=== PATIENT | female | born 1990 | race Caucasian/White ===

== ENCOUNTER 2019-03-08 07:16 | Emergency (ER) | payer MEDICAID ==
[~2019-03-08] VITALS: Ht 162.6 cm; Wt 89.5 kg
[2019-03-08] MEDS ORDERED: ketorolac tromethamine 15mg/ml inj. IV ONE (07:45)
[2019-03-08] MEDS ORDERED: ondansetron/PF 4mg/2ml inj IV ONE (07:45)
[2019-03-08] MEDS ORDERED: normal saline 1000ML IV soln IVB ONE (07:45)
[2019-03-08 07:51] LABS: BASOPHILS % (AUTO) 0.6 % (0-1); EOSINOPHILS # (AUTO) 0.1 X10'3 (0-0.9); EOSINOPHILS % (AUTO) 1.7 % (0-6); HEMATOCRIT 40.9 % (35.0-45.0); HEMOGLOBIN 13.6 g/dl (12.0-16.0); LYMPHOCYTES # (AUTO) 1.3 X10'3 (1.1-4.8); LYMPHOCYTES % (AUTO) 18.8 % (21-51); MEAN CORPUSCULAR HEMOGLOBIN 28.7 PG (27.0-31.0); MEAN CORPUSCULAR HGB CONC 33.3 g/dL (33.0-36.5); MEAN CORPUSCULAR VOLUME 86.1 FL (78-98); MEAN PLATELET VOLUME 8.7 FL (7.4-10.4); MONOCYTES # (AUTO) 0.3 X10'3 (0-0.9); MONOCYTES % (AUTO) 4.2 % (2-12); NEUTROPHILS # (AUTO) 5.1 X10'3 (1.8-7.7); NEUTROPHILS % (AUTO) 74.7 % (42-75); PLATELET COUNT 264 X10'3 (140-440); RED BLOOD COUNT 4.75 X10'6 (4.20-5.60); RED CELL DISTRIBUTION WIDTH 13.6 % (11.5-14.5); WHITE BLOOD COUNT 6.9 X10'3 (4.5-11.0)
[2019-03-08 07:53] LABS: COLOR,URINE YELLOW (Yellow); GLUCOSE, URINE NEGATIVE (Neg); KETONES,URINE NEGATIVE (Neg); LEUKOCYTE ESTERASE ,URINE TRACE (Neg); NITRITES, URINE NEGATIVE (Neg); OCCULT BLOOD,URINE LARGE (Neg); PROTEIN,URINE NEGATIVE (Neg); UROBILINOGEN,URINE 0.2 E.U/dL (0.2-1.0)
[2019-03-08 07:54] LABS: CLARITY,URINE SLIGHTLY CLOUDY (Clear); UA COLLECTION TYPE VOIDED
[2019-03-08 08:04] LABS: ALANINE AMINOTRANSFERASE 28 U/L (12-78); ALBUMIN 3.7 G/DL (3.4-5.0); ALKALINE PHOSPHATASE 70 IU/L (46-116); ANION GAP 10 (8-16); ASPARTATE AMINO TRANSFERASE 17 U/L (10-37); BILIRUBIN,TOTAL 0.4 MG/DL (0.1-1.0); BLOOD UREA NITROGEN 11 MG/DL (7-18); BUN/CREATININE RATIO 15.7 (6.6-38.0); CALCIUM 8.2 MG/DL (8.5-10.1); CHLORIDE 105 MMOL/L (99-107); GLUCOSE 106 MG/DL (70-104); LIPASE 152 U/L (73-393); POTASSIUM 3.8 MMOL/L (3.5-5.1); SODIUM 140 MMOL/L (135-145); TOTAL CARBON DIOXIDE 25.3 MMOL/L (24-32); TOTAL PROTEIN 7.4 G/DL (6.4-8.2); eGFR > 90 ML/MIN
--- NOTE | 2019-03-08 08:05 | NUR ---
US AT BEDSIDE PER ORDERS NOW
[2019-03-08 08:06] LABS: BACTERIA,URINE 3+ /HPF (Neg); SQUAMOUS EPITHELIAL CELL,UR MODERATE /LPF (FEW)
[2019-03-08 08:07] LABS: MUCUS STRANDS FEW /LPF (Neg); WBC,URINE 30-50 /HPF (0-4)
[2019-03-08] MEDS ORDERED: CEPH-572 PO (08:14)
[2019-03-08 08:36] LABS: URINE HCG NEGATIVE (NEG)
[2019-03-08 08:40] VITALS: BP 99/64
== END 2019-03-08 08:46 | disposition home or self-care, planned readmission (81) ==
LOC: ER 07:17
DX: K29.00 Acute gastritis without bleeding (principal); K80.20 Calculus of gallbladder without cholecystitis without obstruction; N39.0 Urinary tract infection, site not specified; Z88.1 Allergy status to other antibiotic agents; Z88.8 Allergy status to other drugs, medicaments and biological substances
CPT/HCPCS: 36415; 76700; 80053; 81001; 81025; 83690; 85025; 87088; 96361; 96374; 96375; 99284; J1885; J2405; J7030

== ENCOUNTER 2019-07-01 18:59 | Emergency (ER) | payer MEDICAID ==
[~2019-07-01] VITALS: Ht 162.6 cm; Wt 88.2 kg
[2019-07-01 19:10] VITALS: BP 113/82
[2019-07-01 19:41] LABS: BASOPHILS # (AUTO) 0.1 X10'3 (0-0.2); EOSINOPHILS # (AUTO) 0.2 X10'3 (0-0.9); EOSINOPHILS % (AUTO) 2.8 % (0-6); HEMATOCRIT 40.8 % (35.0-45.0); HEMOGLOBIN 13.8 g/dl (12.0-16.0); LYMPHOCYTES # (AUTO) 2.1 X10'3 (1.1-4.8); LYMPHOCYTES % (AUTO) 27.6 % (21-51); MEAN CORPUSCULAR HEMOGLOBIN 28.9 PG (27.0-31.0); MEAN CORPUSCULAR HGB CONC 33.8 g/dL (33.0-36.5); MEAN CORPUSCULAR VOLUME 85.6 FL (78-98); MEAN PLATELET VOLUME 8.6 FL (7.4-10.4); MONOCYTES # (AUTO) 0.4 X10'3 (0-0.9); MONOCYTES % (AUTO) 5.3 % (2-12); NEUTROPHILS # (AUTO) 4.9 X10'3 (1.8-7.7); NEUTROPHILS % (AUTO) 63.3 % (42-75); PLATELET COUNT 316 X10'3 (140-440); RED BLOOD COUNT 4.77 X10'6 (4.20-5.60); WHITE BLOOD COUNT 7.8 X10'3 (4.5-11.0)
[2019-07-01 19:48] LABS: CLARITY,URINE CLEAR (Clear); COLOR,URINE YELLOW (Yellow); GLUCOSE, URINE NEGATIVE (Neg); KETONES,URINE NEGATIVE (Neg); LEUKOCYTE ESTERASE ,URINE NEGATIVE (Neg); NITRITES, URINE NEGATIVE (Neg); OCCULT BLOOD,URINE SMALL (Neg); PROTEIN,URINE NEGATIVE (Neg); UROBILINOGEN,URINE 0.2 E.U/dL (0.2-1.0)
[2019-07-01 19:53] LABS: URINE HCG NEGATIVE (NEG)
[2019-07-01 19:54] LABS: UA COLLECTION TYPE NON-SPECIFIED
[2019-07-01 19:55] LABS: BACTERIA,URINE FEW /HPF (Neg); RBC,URINE NONE SEEN /HPF (0-2); SQUAMOUS EPITHELIAL CELL,UR FEW /LPF (FEW); WBC,URINE 0-4 /HPF (0-4)
[2019-07-01 19:55] LABS: ALANINE AMINOTRANSFERASE 24 U/L (12-78); ALBUMIN 4.1 G/DL (3.4-5.0); ALBUMIN/GLOBULIN RATIO 1.2 (1.1-1.5); ALKALINE PHOSPHATASE 67 IU/L (46-116); AMYLASE 64 U/L (25-115); ANION GAP 9 (8-16); ASPARTATE AMINO TRANSFERASE 12 U/L (10-37); BILIRUBIN,TOTAL 0.2 MG/DL (0.1-1.0); BLOOD UREA NITROGEN 17 MG/DL (7-18); BUN/CREATININE RATIO 22.1 (6.6-38.0); CALCIUM 9.3 MG/DL (8.5-10.1); CHLORIDE 104 MMOL/L (99-107); CREATININE 0.77 MG/DL (0.40-0.90); GLUCOSE 101 MG/DL (70-104); LIPASE 302 U/L (73-393); POTASSIUM 3.7 MMOL/L (3.5-5.1); SODIUM 142 MMOL/L (135-145); TOTAL CARBON DIOXIDE 28.7 MMOL/L (24-32); TOTAL PROTEIN 7.6 G/DL (6.4-8.2); eGFR 89 ML/MIN
== END 2019-07-01 21:00 | disposition home or self-care (01) ==
LOC: ER 19:00
DX: R10.12 Left upper quadrant pain (principal); F17.200 Nicotine dependence, unspecified, uncomplicated; Z88.0 Allergy status to penicillin
CPT/HCPCS: 36415; 80053; 81001; 81025; 82150; 83690; 85025; 99283

== ENCOUNTER 2019-07-12 17:35 | Inpatient (IN) | payer MEDICAID ==
[~2019-07-12] VITALS: Ht 165.1 cm; Wt 90.6 kg
[2019-07-12 18:38] LABS: BASOPHILS % (AUTO) 0.7 % (0-1); EOSINOPHILS # (AUTO) 0.2 X10'3 (0-0.9); EOSINOPHILS % (AUTO) 4.7 % (0-6); HEMATOCRIT 40.6 % (35.0-45.0); HEMOGLOBIN 13.6 g/dl (12.0-16.0); LYMPHOCYTES # (AUTO) 1.3 X10'3 (1.1-4.8); LYMPHOCYTES % (AUTO) 25.1 % (21-51); MEAN CORPUSCULAR HEMOGLOBIN 28.2 PG (27.0-31.0); MEAN CORPUSCULAR HGB CONC 33.4 g/dL (33.0-36.5); MEAN CORPUSCULAR VOLUME 84.6 FL (78-98); MEAN PLATELET VOLUME 8.6 FL (7.4-10.4); MONOCYTES # (AUTO) 0.4 X10'3 (0-0.9); MONOCYTES % (AUTO) 6.9 % (2-12); NEUTROPHILS # (AUTO) 3.2 X10'3 (1.8-7.7); NEUTROPHILS % (AUTO) 62.6 % (42-75); PLATELET COUNT 294 X10'3 (140-440); RED CELL DISTRIBUTION WIDTH 13.9 % (11.5-14.5); WHITE BLOOD COUNT 5.1 X10'3 (4.5-11.0)
[2019-07-12 18:59] LABS: ALBUMIN 3.8 G/DL (3.4-5.0); ALKALINE PHOSPHATASE 199 IU/L (46-116); ANION GAP 6 (8-16); ASPARTATE AMINO TRANSFERASE 437 U/L (10-37); BILIRUBIN,TOTAL 4.2 MG/DL (0.1-1.0); BLOOD UREA NITROGEN 8 MG/DL (7-18); BUN/CREATININE RATIO 10.3 (6.6-38.0); CALCIUM 9.3 MG/DL (8.5-10.1); CHLORIDE 102 MMOL/L (99-107); CREATININE 0.78 MG/DL (0.40-0.90); GLUCOSE 94 MG/DL (70-104); LIPASE 500 U/L (73-393); POTASSIUM 3.5 MMOL/L (3.5-5.1); SODIUM 138 MMOL/L (135-145); TOTAL CARBON DIOXIDE 30.2 MMOL/L (24-32); eGFR 88 ML/MIN
[2019-07-12 19:06] LABS: ALANINE AMINOTRANSFERASE 1227 U/L (12-78); ALBUMIN/GLOBULIN RATIO 1.1 (1.1-1.5); TOTAL PROTEIN 7.4 G/DL (6.4-8.2)
[2019-07-12 20:33] LABS: CLARITY,URINE CLEAR (Clear); COLOR,URINE YELLOW (Yellow); GLUCOSE, URINE NEGATIVE (Neg); KETONES,URINE NEGATIVE (Neg); LEUKOCYTE ESTERASE ,URINE TRACE (Neg); NITRITES, URINE NEGATIVE (Neg); OCCULT BLOOD,URINE NEGATIVE (Neg); PROTEIN,URINE NEGATIVE (Neg); URINE HCG NEGATIVE (NEG)
[2019-07-12 20:39] LABS: UA COLLECTION TYPE CLN CATCH MIDSTREAM
[2019-07-12 20:42] LABS: BACTERIA,URINE NONE SEEN /HPF (Neg); RBC,URINE NONE SEEN /HPF (0-2); SQUAMOUS EPITHELIAL CELL,UR FEW /LPF (FEW); WBC,URINE 0-4 /HPF (0-4)
[2019-07-12] MEDS ORDERED: ondansetron/PF 4mg/2ml inj IV ONE ×2 (21:05→22:30)
[2019-07-12] MEDS ORDERED: normal saline 1000ml 1,000 ML IVB ONE (21:05)
[2019-07-12] MEDS ORDERED: normal saline 1000ML IV soln IVB ONE (21:15)
--- NOTE | 2019-07-12 21:20 | NUR ---
US TECH AT BEDSIDE.
[2019-07-12] MEDS ORDERED: ketorolac trometh. 30mg/ml inj. IV ONE (21:55)
[2019-07-12] MEDS ORDERED: morphine 4 MG/ML inj SYRINge IV PRN (22:30)
[2019-07-12] MEDS ORDERED: LEVO88TA7 PO (22:41)
[2019-07-12] MEDS ORDERED: LISD20CA PO (22:41)
[2019-07-12] MEDS ORDERED: magnesium hydroxide 30ml (MOM) UD suspension PO PRN (23:05)
[2019-07-12] MEDS ORDERED: potassium CL 10mEq/100ml bag 100 ML IV PRN ×2 (23:05)
[2019-07-12] MEDS ORDERED: magnesium 2GM in 50ml NS 50 ML IV PRN (23:05)
[2019-07-12] MEDS ORDERED: morphine 2 MG/ML inj. syringe IV PRN (23:05)
[2019-07-12] MEDS ORDERED: mag hydrox/Alum hydrox/simeth 30ml oral suspension PO PRN (23:05)
[2019-07-12] MEDS ORDERED: magnesium Cl slow-release 64mg tablet PO PRN (23:05)
[2019-07-12] MEDS ORDERED: HYDROcodone/acetaminophen 5mg/325mg tablet PO PRN (23:05)
[2019-07-12] MEDS ORDERED: ondansetron/PF 4mg/2ml inj IV PRN (23:05)
[2019-07-12] MEDS ORDERED: magnesium 4gm in 100ml NS 100 ML IV PRN (23:05)
[2019-07-12] MEDS ORDERED: acetaminophen 325mg tablet PO PRN ×2 (23:05)
[2019-07-12] MEDS ORDERED: potassium Cl 20 mEq SR tablet PO PRN ×2 (23:05)
[2019-07-13 00:30] VITALS: BP 111/51
[2019-07-13] MEDS: normal saline 1000ml 1,000 ML IV SCH ×3 (00:42→22:47)
[2019-07-13 05:24] LABS: BASOPHILS % (AUTO) 0.7 % (0-1); EOSINOPHILS # (AUTO) 0.3 X10'3 (0-0.9); EOSINOPHILS % (AUTO) 6.4 % (0-6); HEMATOCRIT 37.5 % (35.0-45.0); HEMOGLOBIN 12.7 g/dl (12.0-16.0); LYMPHOCYTES # (AUTO) 1.6 X10'3 (1.1-4.8); LYMPHOCYTES % (AUTO) 31.2 % (21-51); MEAN CORPUSCULAR HEMOGLOBIN 29.1 PG (27.0-31.0); MEAN CORPUSCULAR HGB CONC 33.9 g/dL (33.0-36.5); MEAN CORPUSCULAR VOLUME 85.6 FL (78-98); MEAN PLATELET VOLUME 8.9 FL (7.4-10.4); MONOCYTES # (AUTO) 0.4 X10'3 (0-0.9); MONOCYTES % (AUTO) 8.3 % (2-12); NEUTROPHILS # (AUTO) 2.7 X10'3 (1.8-7.7); NEUTROPHILS % (AUTO) 53.4 % (42-75); PLATELET COUNT 236 X10'3 (140-440); RED BLOOD COUNT 4.38 X10'6 (4.20-5.60); RED CELL DISTRIBUTION WIDTH 14.3 % (11.5-14.5); WHITE BLOOD COUNT 5.1 X10'3 (4.5-11.0)
[2019-07-13 05:44] LABS: ALBUMIN 2.9 G/DL (3.4-5.0); ANION GAP 8 (8-16); BLOOD UREA NITROGEN 10 MG/DL (7-18); BUN/CREATININE RATIO 12.2 (6.6-38.0); CALCIUM 7.7 MG/DL (8.5-10.1); CHLORIDE 109 MMOL/L (99-107); CREATININE 0.82 MG/DL (0.40-0.90); GLUCOSE 91 MG/DL (70-104); MAGNESIUM 1.9 MG/DL (1.5-2.4); POTASSIUM 3.9 MMOL/L (3.5-5.1); SODIUM 141 MMOL/L (135-145); TOTAL CARBON DIOXIDE 24.3 MMOL/L (24-32); eGFR 83 ML/MIN
[2019-07-13] MEDS: famotidine/PF 10 mg/ml inj IV SCH ×2 (07:59→22:33)
[2019-07-13] MEDS: diatr meglu/diatrizoate 30ml oral sol.-(3 dose) bottle PO SCH ×3 (07:59→12:14)
[2019-07-13 08:00] VITALS: BP 93/56
[2019-07-13] MEDS: levoTHYROXINE 100mcg tablet PO SCH (08:00)
[2019-07-13] MEDS: LISDEXAMFETAMINE DIMESYLATE 30 MG PO SCH (08:00)
[2019-07-13] MEDS: K and/or MAG REPLACEMENT MC SCH ×2 (08:00→20:00)
[2019-07-13] MEDS ORDERED: iohexol 300mg/ml 100ml inj. ONE (09:01)
[2019-07-13 10:02] LABS: ALANINE AMINOTRANSFERASE 759 U/L (12-78); ALBUMIN 2.9 G/DL (3.4-5.0); ALKALINE PHOSPHATASE 154 IU/L (46-116); ANION GAP 9 (8-16); ASPARTATE AMINO TRANSFERASE 194 U/L (10-37); BILIRUBIN,TOTAL 1.6 MG/DL (0.1-1.0); BLOOD UREA NITROGEN 8 MG/DL (7-18); BUN/CREATININE RATIO 10.7 (6.6-38.0); CALCIUM 7.8 MG/DL (8.5-10.1); CHLORIDE 110 MMOL/L (99-107); CREATININE 0.75 MG/DL (0.40-0.90); GLUCOSE 96 MG/DL (70-104); SODIUM 142 MMOL/L (135-145); TOTAL CARBON DIOXIDE 23.4 MMOL/L (24-32); TOTAL PROTEIN 5.9 G/DL (6.4-8.2); eGFR > 90 ML/MIN
[2019-07-13 11:00] VITALS: BP 105/64
[2019-07-13] MEDS ORDERED: ringers solution, lacted 1,000 ML IV SCH (13:21)
[2019-07-13] MEDS ORDERED: proCHLORperazine 10 MG/2 ml inj IV PRN (13:25)
[2019-07-13] MEDS ORDERED: meperidine/PF 25mg/ml syringe IV PRN ×3 (13:25)
[2019-07-13] MEDS ORDERED: ondansetron/PF 4mg/2ml inj IV PRN (13:25)
[2019-07-13] MEDS ORDERED: morphine 4 MG/ML inj SYRINge IV PRN ×2 (13:25)
--- NOTE | 2019-07-13 18:15 | NUR ---
Patient in room [facility]. I have received report from Olya SALINAS and had the opportunity to ask questions and assume patient care.
--- NOTE | 2019-07-13 18:40 | NUR ---
Problems reprioritized. Patient report given, questions answered & plan of care reviewed with Eunice SALINAS.
[2019-07-13 20:00] VITALS: BP 117/82
[2019-07-14] VITALS: BP 99/62
[2019-07-14] MEDS: normal saline 1000ml 1,000 ML IV SCH ×2 (05:05→08:16)
[2019-07-14 06:19] LABS: BASOPHILS % (AUTO) 0.6 % (0-1); EOSINOPHILS # (AUTO) 0.4 X10'3 (0-0.9); EOSINOPHILS % (AUTO) 6.3 % (0-6); HEMOGLOBIN 12.2 g/dl (12.0-16.0); LYMPHOCYTES # (AUTO) 1.6 X10'3 (1.1-4.8); MEAN CORPUSCULAR HEMOGLOBIN 29.3 PG (27.0-31.0); MONOCYTES # (AUTO) 0.4 X10'3 (0-0.9); MONOCYTES % (AUTO) 7.1 % (2-12); NEUTROPHILS # (AUTO) 3.9 X10'3 (1.8-7.7); PLATELET COUNT 226 X10'3 (140-440); RED BLOOD COUNT 4.18 X10'6 (4.20-5.60); RED CELL DISTRIBUTION WIDTH 14.2 % (11.5-14.5); WHITE BLOOD COUNT 6.3 X10'3 (4.5-11.0)
--- NOTE | 2019-07-14 06:28 | NUR ---
Problems reprioritized. Patient report given, questions answered & plan of care reviewed with Brian RN.
--- NOTE | 2019-07-14 06:30 | NUR ---
Patient in room [facility]. I have received report from ES SALINAS and had the opportunity to ask questions and assume patient care.
[2019-07-14 06:36] LABS: ALBUMIN 2.9 G/DL (3.4-5.0); ANION GAP 7 (8-16); BLOOD UREA NITROGEN 6 MG/DL (7-18); BUN/CREATININE RATIO 9.7 (6.6-38.0); CHLORIDE 110 MMOL/L (99-107); CREATININE 0.62 MG/DL (0.40-0.90); GLUCOSE 93 MG/DL (70-104); MAGNESIUM 1.7 MG/DL (1.5-2.4); POTASSIUM 4.1 MMOL/L (3.5-5.1); SODIUM 141 MMOL/L (135-145); TOTAL CARBON DIOXIDE 23.6 MMOL/L (24-32); eGFR > 90 ML/MIN
[2019-07-14 07:08] VITALS: BP 116/67
[2019-07-14] MEDS: K and/or MAG REPLACEMENT MC SCH ×2 (07:22→20:00)
[2019-07-14] MEDS: enoxaparin 40mg/0.4ml syringe SQ SCH (07:24)
[2019-07-14] MEDS: LISDEXAMFETAMINE DIMESYLATE 30 MG PO SCH (07:24)
[2019-07-14] MEDS: levoTHYROXINE 100mcg tablet PO SCH (07:28)
[2019-07-14] MEDS: famotidine/PF 10 mg/ml inj IV SCH (08:16)
[2019-07-14 11:00] VITALS: BP 104/63
--- NOTE | 2019-07-14 11:06 | NUR ---
Student Medication Administration: For this medication-pass time frame, all medication were reviewed, dispensed, administered and documented per hospital policy by Lisandro TAVAREZ [facility].
[2019-07-14 14:25] LABS: ALANINE AMINOTRANSFERASE 641 U/L (12-78); ALBUMIN/GLOBULIN RATIO 0.9 (1.1-1.5); ALKALINE PHOSPHATASE 142 IU/L (46-116); ASPARTATE AMINO TRANSFERASE 96 U/L (10-37); BILIRUBIN,DIRECT 0.4 MG/DL (0-0.3); BILIRUBIN,TOTAL 0.9 MG/DL (0.1-1.0)
[2019-07-14 14:56] VITALS: BP 105/65
[2019-07-14] MEDS ORDERED: ringers solution, lacted 1,000 ML IV SCH (17:48)
[2019-07-14] MEDS ORDERED: proCHLORperazine 10 MG/2 ml inj IV PRN (17:50)
[2019-07-14] MEDS ORDERED: ondansetron/PF 4mg/2ml inj IV PRN (17:50)
[2019-07-14] MEDS ORDERED: meperidine/PF 25mg/ml syringe IV PRN ×2 (17:50)
[2019-07-14] MEDS ORDERED: morphine 4 MG/ML inj SYRINge IV PRN (17:50)
[2019-07-14] MEDS ORDERED: morphine 2 MG/ML inj. syringe IV PRN (17:50)
[2019-07-14 18:00] VITALS: BP 120/78
[2019-07-14] MEDS ORDERED: ceFAZolin 1000mg inj ONE (18:06)
[2019-07-14] MEDS ORDERED: BUPIVAcaine/PF 2.5 mg/ml (0.25%) 30ml vial ONE (18:06)
[2019-07-14 18:16] VITALS: BP 106/63
--- NOTE | 2019-07-14 18:20 | NUR ---
Patient in room [facility]. I have received report from Brian SALINAS and had the opportunity to ask questions and assume patient care.
--- NOTE | 2019-07-14 18:30 | NUR ---
Problems reprioritized. Patient report given, questions answered & plan of care reviewed with Lynda SALINAS.
[2019-07-14] MEDS: famotidine 20mg tablet PO SCH (20:38)
--- NOTE | 2019-07-14 23:51 | NUR ---
Patient feels like she is coming down with a cold. Addendum: 07/14/19 at 4136 by Lynda Navas RN Amended: Links added.
[2019-07-15] VITALS (16 sets, daily range): BP systolic 98–125; BP diastolic 40–84
[2019-07-15] MEDS: normal saline 1000ml 1,000 ML IV SCH ×3 (01:05→21:05)
--- NOTE | 2019-07-15 06:15 | NUR ---
Problems reprioritized. Patient report given, questions answered & plan of care reviewed with Brian RN.
[2019-07-15 06:20] LABS: BASOPHILS % (AUTO) 0.4 % (0-1); EOSINOPHILS # (AUTO) 0.3 X10'3 (0-0.9); EOSINOPHILS % (AUTO) 4.6 % (0-6); HEMATOCRIT 38.9 % (35.0-45.0); LYMPHOCYTES # (AUTO) 1.4 X10'3 (1.1-4.8); LYMPHOCYTES % (AUTO) 20.7 % (21-51); MEAN CORPUSCULAR HEMOGLOBIN 28.7 PG (27.0-31.0); MEAN CORPUSCULAR HGB CONC 33.3 g/dL (33.0-36.5); MEAN CORPUSCULAR VOLUME 86.2 FL (78-98); MEAN PLATELET VOLUME 9.4 FL (7.4-10.4); MONOCYTES # (AUTO) 0.5 X10'3 (0-0.9); MONOCYTES % (AUTO) 7.1 % (2-12); NEUTROPHILS # (AUTO) 4.7 X10'3 (1.8-7.7); NEUTROPHILS % (AUTO) 67.2 % (42-75); PLATELET COUNT 234 X10'3 (140-440); RED BLOOD COUNT 4.51 X10'6 (4.20-5.60); RED CELL DISTRIBUTION WIDTH 14.1 % (11.5-14.5)
[2019-07-15 06:27] LABS: ALBUMIN 3.1 G/DL (3.4-5.0); ANION GAP 8 (8-16); BLOOD UREA NITROGEN 7 MG/DL (7-18); BUN/CREATININE RATIO 10.4 (6.6-38.0); CALCIUM 8.5 MG/DL (8.5-10.1); CHLORIDE 107 MMOL/L (99-107); CREATININE 0.67 MG/DL (0.40-0.90); GLUCOSE 91 MG/DL (70-104); MAGNESIUM 1.7 MG/DL (1.5-2.4); POTASSIUM 4.2 MMOL/L (3.5-5.1); SODIUM 141 MMOL/L (135-145); TOTAL CARBON DIOXIDE 26.2 MMOL/L (24-32); eGFR > 90 ML/MIN
[2019-07-15 07:22] LABS: ALANINE AMINOTRANSFERASE 471 U/L (12-78); ALBUMIN/GLOBULIN RATIO 0.9 (1.1-1.5); ALKALINE PHOSPHATASE 147 IU/L (46-116); ASPARTATE AMINO TRANSFERASE 68 U/L (10-37); BILIRUBIN,TOTAL 0.8 MG/DL (0.1-1.0); TOTAL PROTEIN 6.4 G/DL (6.4-8.2)
[2019-07-15] MEDS: famotidine 20mg tablet PO SCH ×2 (07:38→19:53)
[2019-07-15] MEDS: levoTHYROXINE 100mcg tablet PO SCH (07:38)
[2019-07-15] MEDS: LISDEXAMFETAMINE DIMESYLATE 30 MG PO SCH (08:00)
[2019-07-15] MEDS: enoxaparin 40mg/0.4ml syringe SQ SCH (08:00)
[2019-07-15] MEDS: K and/or MAG REPLACEMENT MC SCH ×2 (08:00→20:00)
[2019-07-15] MEDS ORDERED: oxymetazoline 15 ML nasal spray NS PRN (10:15)
[2019-07-15] MEDS ORDERED: ceFAZolin 1000mg inj ONE (13:58)
[2019-07-15] MEDS ORDERED: BUPIVAcaine/PF 2.5 mg/ml (0.25%) 30ml vial ONE (13:58)
[2019-07-15] MEDS ORDERED: ketorolac trometh. 30mg/ml inj. ONE (14:32)
[2019-07-15] MEDS ORDERED: sevoflurane 250ml liquid IH ONE (14:32)
[2019-07-15] MEDS ORDERED: neostigmine methylsulfate 1 MG/ML 10ml vial ONE ×2 (14:32→17:19)
[2019-07-15] MEDS ORDERED: fentaNYL/PF 50MCG/1 ML 2ML syringe ONE ×2 (14:35→14:50)
[2019-07-15] MEDS ORDERED: midazolam 2 mg/2 ml injection ONE (14:35)
--- NOTE | 2019-07-15 15:14 | NUR ---
Student documentation: I have reviewed all interventions, assessments performed and documented by Rebecca WEBER.
[2019-07-15] MEDS ORDERED: ondansetron/PF 4mg/2ml inj ONE (16:09)
[2019-07-15] MEDS ORDERED: meperidine/PF 50mg/ml syringe ONE (16:16)
--- NOTE | 2019-07-15 16:26 | NUR ---
Received from OR via , accompanied by Anesthesiologist DR BUSH and report given by Anesthesiolgist. AWAKENS TO VOICE. VITALS STABLE. DRESSINGS DI. RAJINDER PAIN. ABD SOFT.
[2019-07-15] MEDS: potassium CL 20mEq in D5-1/2NS 1,000 ML IV SCH (16:28)
[2019-07-15] MEDS ORDERED: ondansetron/PF 4mg/2ml inj IV PRN (16:30)
[2019-07-15] MEDS: meperidine/PF 25mg/ml syringe IV PRN ×3 (16:50→17:12)
[2019-07-15] MEDS ORDERED: propofol inj 20 ML IV ONE (16:52)
[2019-07-15] MEDS ORDERED: LIDOcaine 2% (20mg/ml) 5ml vial ONE (16:52)
[2019-07-15] MEDS ORDERED: rocuronium 10mg/ml inj IV ONE (16:52)
--- NOTE | 2019-07-15 17:16 | NUR ---
Report called to receiving nurse. Transferred via BED Belongings . Special Issues communicated to receiving nurse. AWAKE AND ORIENTED. VITALS STABLE. DRESSINGS DI. STATES PAIN IMPROVING. TO SURGICAL [facility] AT THIS TIME.
[2019-07-15] MEDS ORDERED: glycopyrrolate 0.2mg/ml inj ONE (17:19)
[2019-07-15] MEDS ORDERED: dexamethasone sod phosphate 4mg/ml inj. ONE (17:19)
[2019-07-15] MEDS: morphine 2 MG/ML inj. syringe IV PRN ×2 (17:35→21:50)
--- NOTE | 2019-07-15 18:30 | NUR ---
Problems reprioritized. Patient report given, questions answered & plan of care reviewed with Uriel SALINAS.
[2019-07-15] MEDS: HYDROcodone/acetaminophen 10/325mg tab PO PRN (19:53)
[2019-07-16] VITALS: BP 119/73
[2019-07-16] MEDS: potassium CL 20mEq in D5-1/2NS 1,000 ML IV SCH ×4 (00:28→20:46)
[2019-07-16] MEDS: HYDROcodone/acetaminophen 10/325mg tab PO PRN ×2 (01:23→05:24)
[2019-07-16] MEDS: morphine 2 MG/ML inj. syringe IV PRN ×2 (03:44→08:52)
[2019-07-16 05:59] LABS: BASOPHILS % (AUTO) 0.1 % (0-1); EOSINOPHILS % (AUTO) 0 % (0-6); HEMATOCRIT 36.6 % (35.0-45.0); HEMOGLOBIN 12.2 g/dl (12.0-16.0); LYMPHOCYTES # (AUTO) 0.9 X10'3 (1.1-4.8); LYMPHOCYTES % (AUTO) 7.5 % (21-51); MEAN CORPUSCULAR HEMOGLOBIN 28.8 PG (27.0-31.0); MEAN CORPUSCULAR HGB CONC 33.3 g/dL (33.0-36.5); MEAN CORPUSCULAR VOLUME 86.5 FL (78-98); MONOCYTES # (AUTO) 0.7 X10'3 (0-0.9); MONOCYTES % (AUTO) 6.4 % (2-12); NEUTROPHILS # (AUTO) 9.9 X10'3 (1.8-7.7); PLATELET COUNT 227 X10'3 (140-440); RED BLOOD COUNT 4.23 X10'6 (4.20-5.60); WHITE BLOOD COUNT 11.5 X10'3 (4.5-11.0)
[2019-07-16 06:28] LABS: ALANINE AMINOTRANSFERASE 446 U/L (12-78); ALBUMIN 3.1 G/DL (3.4-5.0); ALBUMIN/GLOBULIN RATIO 0.9 (1.1-1.5); ALKALINE PHOSPHATASE 125 IU/L (46-116); ANION GAP 6 (8-16); ASPARTATE AMINO TRANSFERASE 113 U/L (10-37); BILIRUBIN,TOTAL 0.8 MG/DL (0.1-1.0); BLOOD UREA NITROGEN 5 MG/DL (7-18); BUN/CREATININE RATIO 7.1 (6.6-38.0); CALCIUM 8.6 MG/DL (8.5-10.1); CHLORIDE 105 MMOL/L (99-107); GLUCOSE 133 MG/DL (70-104); MAGNESIUM 1.8 MG/DL (1.5-2.4); POTASSIUM 4.4 MMOL/L (3.5-5.1); SODIUM 140 MMOL/L (135-145); TOTAL CARBON DIOXIDE 29.1 MMOL/L (24-32); TOTAL PROTEIN 6.6 G/DL (6.4-8.2); eGFR > 90 ML/MIN
--- NOTE | 2019-07-16 06:30 | NUR ---
Patient in room [facility]. I have received report from RITA Trevino and had the opportunity to ask questions and assume patient care.
[2019-07-16] MEDS: K and/or MAG REPLACEMENT MC SCH ×2 (07:28→20:00)
[2019-07-16 07:42] VITALS: BP 99/62
[2019-07-16] MEDS: LISDEXAMFETAMINE DIMESYLATE 30 MG PO SCH (07:49)
[2019-07-16] MEDS: famotidine 20mg tablet PO SCH ×2 (07:52→20:41)
[2019-07-16] MEDS: enoxaparin 40mg/0.4ml syringe SQ SCH (07:52)
[2019-07-16] MEDS: levoTHYROXINE 100mcg tablet PO SCH (07:52)
[2019-07-16 11:00] VITALS: BP 114/70
--- NOTE | 2019-07-16 11:22 | NUR ---
Initial: Pt admit with multiple gallstones. Pt now s/p lap ursula 07/15. Pt currently on a clear liquid diet however was documented with 75-100% PO intake prior to surgery while on regular diet. LBM 07/14. No nutrition intervention warranted at this time. Will continue to follow. Recommendations: 1) Advance to regular diet as medically indicated 2) Monitor need for ONS 3) Bowel care PRN 4) Wt per rx Addendum: 07/16/19 at [address] Amended: Links added.
[2019-07-16] MEDS: oxyCODONE/APAP 10/325mg tablet PO PRN ×3 (11:26→23:54)
[2019-07-16] MEDS ORDERED: HYDROmorphone 1 mg/ml syringe IV PRN (12:55)
[2019-07-16] MEDS: ketorolac trometh. 30mg/ml inj. IV PRN ×2 (13:37→20:41)
[2019-07-16] MEDS ORDERED: ketorolac trometh. 30mg/ml inj. IV SCH (14:00)
[2019-07-16 18:00] VITALS: BP 115/74
--- NOTE | 2019-07-16 18:15 | NUR ---
Problems reprioritized. Patient report given, questions answered & plan of care reviewed with RITA Trevino.
[2019-07-17] VITALS: BP 98/60
[2019-07-17] MEDS: ketorolac trometh. 30mg/ml inj. IV PRN ×4 (05:37→23:58)
[2019-07-17 05:57] LABS: BASOPHILS % (AUTO) 0.3 % (0-1); EOSINOPHILS # (AUTO) 0.1 X10'3 (0-0.9); EOSINOPHILS % (AUTO) 2.3 % (0-6); HEMATOCRIT 31.5 % (35.0-45.0); HEMOGLOBIN 10.7 g/dl (12.0-16.0); LYMPHOCYTES # (AUTO) 1.7 X10'3 (1.1-4.8); MEAN CORPUSCULAR HGB CONC 33.8 g/dL (33.0-36.5); MEAN CORPUSCULAR VOLUME 85.9 FL (78-98); MEAN PLATELET VOLUME 8.9 FL (7.4-10.4); MONOCYTES # (AUTO) 0.5 X10'3 (0-0.9); NEUTROPHILS # (AUTO) 3.4 X10'3 (1.8-7.7); NEUTROPHILS % (AUTO) 59.4 % (42-75); PLATELET COUNT 194 X10'3 (140-440); RED BLOOD COUNT 3.67 X10'6 (4.20-5.60); RED CELL DISTRIBUTION WIDTH 14.2 % (11.5-14.5); WHITE BLOOD COUNT 5.7 X10'3 (4.5-11.0)
--- NOTE | 2019-07-17 06:15 | NUR ---
Patient in room [facility]. I have received report from RITA Trevino and had the opportunity to ask questions and assume patient care.
[2019-07-17 06:16] LABS: ALBUMIN 2.5 G/DL (3.4-5.0); ANION GAP 3 (8-16); BLOOD UREA NITROGEN 3 MG/DL (7-18); BUN/CREATININE RATIO 4.7 (6.6-38.0); CALCIUM 7.9 MG/DL (8.5-10.1); CHLORIDE 109 MMOL/L (99-107); CREATININE 0.64 MG/DL (0.40-0.90); GLUCOSE 102 MG/DL (70-104); MAGNESIUM 1.7 MG/DL (1.5-2.4); POTASSIUM 4.2 MMOL/L (3.5-5.1); SODIUM 140 MMOL/L (135-145); TOTAL CARBON DIOXIDE 27.8 MMOL/L (24-32); eGFR > 90 ML/MIN
[2019-07-17 06:30] VITALS: BP 106/60
[2019-07-17] MEDS: K and/or MAG REPLACEMENT MC SCH ×2 (06:55→20:00)
[2019-07-17] MEDS: levoTHYROXINE 100mcg tablet PO SCH (08:09)
[2019-07-17] MEDS: famotidine 20mg tablet PO SCH ×2 (08:09→20:30)
[2019-07-17] MEDS: enoxaparin 40mg/0.4ml syringe SQ SCH (08:10)
[2019-07-17] MEDS: oxyCODONE/APAP 10/325mg tablet PO PRN ×3 (08:11→20:25)
[2019-07-17] MEDS: potassium CL 20mEq in D5-1/2NS 1,000 ML IV SCH ×2 (08:28→11:19)
[2019-07-17 11:00] VITALS: BP 109/69
[2019-07-17] MEDS ORDERED: OXYC-511 PO (13:13)
[2019-07-17 18:00] VITALS: BP 119/79
--- NOTE | 2019-07-17 18:20 | NUR ---
Problems reprioritized. Patient report given, questions answered & plan of care reviewed with RITA Trevino.
[2019-07-18] VITALS: BP 110/65
[2019-07-18] MEDS: oxyCODONE/APAP 10/325mg tablet PO PRN ×3 (05:27→17:35)
--- NOTE | 2019-07-18 06:05 | NUR ---
Patient in room [facility]. I have received report from Kenia RN & Noemy RN and had the opportunity to ask questions and assume patient care.
--- NOTE | 2019-07-18 06:20 | NUR ---
Patient in room [facility]. I have received report from RITA Trevino and had the opportunity to ask questions and assume patient care.
[2019-07-18 06:30] VITALS: BP 105/61
[2019-07-18] MEDS: K and/or MAG REPLACEMENT MC SCH ×2 (06:59→20:00)
[2019-07-18] MEDS: enoxaparin 40mg/0.4ml syringe SQ SCH (07:00)
[2019-07-18] MEDS: famotidine 20mg tablet PO SCH ×2 (08:05→20:21)
[2019-07-18] MEDS: levoTHYROXINE 100mcg tablet PO SCH (08:05)
[2019-07-18] MEDS: ketorolac trometh. 30mg/ml inj. IV PRN ×3 (08:06→22:43)
[2019-07-18] MEDS ORDERED: magnesium hydroxide 30ml (MOM) UD suspension PO ONE (09:00)
[2019-07-18] MEDS ORDERED: methylnaltrexone br 12mg/0.6ml inj***SubQ only SQ ONE (09:00)
[2019-07-18 11:00] VITALS: BP 121/74
--- NOTE | 2019-07-18 18:50 | NUR ---
Problems reprioritized. Patient report given, questions answered & plan of care reviewed with Abbie RN.
[2019-07-18 19:30] VITALS: BP 123/80
[2019-07-18 23:00] VITALS: BP 116/62
[2019-07-19] MEDS: oxyCODONE/APAP 10/325mg tablet PO PRN ×2 (04:56→09:47)
[2019-07-19] MEDS: famotidine 20mg tablet PO SCH (07:16)
[2019-07-19] MEDS: levoTHYROXINE 100mcg tablet PO SCH (07:16)
[2019-07-19] MEDS: enoxaparin 40mg/0.4ml syringe SQ SCH (07:17)
[2019-07-19] MEDS: K and/or MAG REPLACEMENT MC SCH (07:17)
[2019-07-19 07:40] VITALS: BP 107/62
--- NOTE | 2019-07-19 10:47 | NUR ---
Patient discharged home with . All belongings taken from room. IV removed. New prescription given to patient as well as work excuse note. Discharge instructions given and reviewed with patient. All questions answered. sales support manager spoke with patient prior to discharge as requested by patient.
== END 2019-07-19 10:48 | disposition home or self-care (01) | DRG 263 ==
LOC: ER 17:38 → ED HOLD 23:16 → SUR 3N 07-13 00:23
PROVIDERS: ADMIT Hospitalist; ATTEND Internal Medicine
PROC: BW211ZZ Computerized Tomography (CT Scan) of Abdomen and Pelvis using Low Osmolar Contrast (ICD-10-PCS; 2019-07-13)
PROC: 0UPD0HZ Removal of Contraceptive Device from Uterus and Cervix, Open Approach (ICD-10-PCS; 2019-07-15)
PROC: 0FT44ZZ Resection of Gallbladder, Percutaneous Endoscopic Approach (ICD-10-PCS; principal; 2019-07-15 14:32)
DX: K85.10 Biliary acute pancreatitis without necrosis or infection (principal); K56.7 Ileus, unspecified; K80.50 Calculus of bile duct without cholangitis or cholecystitis without obstruction; M79.5 Residual foreign body in soft tissue; E66.9 Obesity, unspecified; J45.909 Unspecified asthma, uncomplicated; E03.9 Hypothyroidism, unspecified; R94.5 Abnormal results of liver function studies; Z87.11 Personal history of peptic ulcer disease; Z68.33 Body mass index [BMI] 33.0-33.9, adult; Z88.1 Allergy status to other antibiotic agents; Z79.899 Other long term (current) drug therapy
CPT/HCPCS: 36415; 74177; 76700; 80048; 80053; 80076; 81001; 81025; 82948; 83690; 83735; 84443; 85025; 87081; 87088; 96374; 99285; A4215; A4618; A7000; G0378; J0690; J1100; J1650; J1885; J2001; J2175; J2212; J2250; J2270; J2405; J2704; J2710; J3010; J3480; J3490; J7030; J7120; Q9963; Q9967

== ENCOUNTER 2019-10-22 16:36 | Emergency (ER) | payer MEDICAID ==
[~2019-10-22] VITALS: Ht 162.6 cm; Wt 91.0 kg
[~2019-10-22 16:36] MED LIST: LEVO88TA7 PO; LISD20CA PO; OXYC-511 PO
[2019-10-22 16:56] VITALS: BP 123/71
[2019-10-22] MEDS ORDERED: CLIN150C2 PO (17:01)
== END 2019-10-22 17:17 | disposition home or self-care (01) ==
LOC: ER 16:37
DX: K08.89 Other specified disorders of teeth and supporting structures (principal); Z88.1 Allergy status to other antibiotic agents; Z79.899 Other long term (current) drug therapy
CPT/HCPCS: 99283

== ENCOUNTER 2023-09-05 17:10 | Emergency (ER) | payer MEDICAID ==
[~2023-09-05] VITALS: Ht 165.1 cm; Wt 97.3 kg
[~2023-09-05 17:10] MED LIST changes: -OXYC-511 PO; +OXYC1TAB17 PO
[2023-09-05 17:11] VITALS: BP 129/74; PULSE 95; TEMP 98.3; O2SAT 98
[2023-09-05] MEDS ORDERED: PRED20TA PO (18:27)
[2023-09-05] MEDS ORDERED: ALBU8HFA PO (18:27)
[2023-09-05] MEDS ORDERED: BENZ-38 PO (18:27)
[2023-09-05] MEDS ORDERED: CODE10LI2 PO (18:27)
[2023-09-05 19:04] VITALS: RESP 16
== END 2023-09-05 19:05 | disposition home or self-care (01) ==
LOC: ER 17:11
DX: J20.9 Acute bronchitis, unspecified (principal); Z88.8 Allergy status to other drugs, medicaments and biological substances; Z79.899 Other long term (current) drug therapy
CPT/HCPCS: 36415; 71045; 84702; 99284

== ENCOUNTER → 2023-09-09 | Outpatient (CLI) | payer MEDICAID ==
[~2023-09-09] MED LIST changes: +ALBU8HFA PO; +BENZ-38 PO; +CODE10LI2 PO; +PRED20TA PO
== END | disposition home or self-care (01) ==
LOC: LAB 14:17
PROVIDERS: ATTEND Nurse Practitioner
DX: Z34.00 Encounter for supervision of normal first pregnancy, unspecified trimester (principal)
CPT/HCPCS: 36415; 84702

== ENCOUNTER 2024-05-20 12:05 | Outpatient (CLI) | payer MEDICAID ==
[~2024-05-20 12:05] MED LIST changes: -ALBU8HFA PO; -BENZ-38 PO; -PRED20TA PO
== END 2024-05-20 23:59 | disposition home or self-care (01) ==
LOC: LAB 12:05
PROVIDERS: ATTEND Nurse Practitioner Women's Health
DX: Z34.00 Encounter for supervision of normal first pregnancy, unspecified trimester (principal)
CPT/HCPCS: 36415; 84702

== ENCOUNTER 2024-08-08 22:14 | Emergency (ER) | payer MEDICAID ==
[~2024-08-08] VITALS: Ht 165.1 cm; Wt 101.8 kg
[2024-08-08 22:54] LABS: BASOPHILS % (AUTO) 0.5 % (0-1); EOSINOPHILS # (AUTO) 0.2 X10'3 (0-0.9); HEMATOCRIT 24.1 % (35.0-45.0); HEMOGLOBIN 7.7 g/dl (12.0-16.0); LYMPHOCYTES % (AUTO) 28.4 % (21-51); MEAN CORPUSCULAR HEMOGLOBIN 23.1 PG (27.0-31.0); MEAN CORPUSCULAR HGB CONC 32.1 g/dL (33.0-36.5); MEAN PLATELET VOLUME 8.4 FL (7.4-10.4); MONOCYTES # (AUTO) 0.4 X10'3 (0-0.9); MONOCYTES % (AUTO) 5.9 % (2-12); NEUTROPHILS # (AUTO) 4.4 X10'3 (1.8-7.7); NEUTROPHILS % (AUTO) 62.2 % (42-75); PLATELET COUNT 347 X10'3 (140-440); RED BLOOD COUNT 3.35 X10'6 (4.20-5.60); RED CELL DISTRIBUTION WIDTH 17.7 % (11.5-14.5)
[2024-08-08 23:04] LABS: PROTHROMBIN TIME 10.3 SECONDS (9.0-12.0)
[2024-08-08 23:09] LABS: ALANINE AMINOTRANSFERASE 15 U/L (12-78); ALBUMIN 3.2 G/DL (3.4-5.0); ALKALINE PHOSPHATASE 69 IU/L (46-116); ANION GAP 9 (8-16); ASPARTATE AMINO TRANSFERASE 13 U/L (10-37); BILIRUBIN,TOTAL 0.1 MG/DL (0.1-1.0); BLOOD UREA NITROGEN 14 MG/DL (7-18); CALCIUM 8.1 MG/DL (8.5-10.1); CHLORIDE 109 MMOL/L (99-107); GLUCOSE 89 MG/DL (70-104); POTASSIUM 3.7 MMOL/L (3.5-5.1); SODIUM 143 MMOL/L (135-145); TOTAL CARBON DIOXIDE 25.4 MMOL/L (24-32); TOTAL PROTEIN 6.3 G/DL (6.4-8.2); eCRCL 103 ML/MIN; eGFR > 90 ML/MIN
[2024-08-09] MEDS ORDERED: fluconazole 100mg tablet PO ONE (00:35)
[2024-08-09 00:36] LABS: URINE HCG NEGATIVE (NEG)
[2024-08-09 00:39] LABS: BILIRUBIN,URINE NEGATIVE (Neg); CLARITY,URINE CLEAR (Clear); COLOR,URINE YELLOW (Yellow); GLUCOSE, URINE NEGATIVE (Neg); KETONES,URINE NEGATIVE (Neg); LEUKOCYTE ESTERASE ,URINE NEGATIVE (Neg); NITRITES, URINE NEGATIVE (Neg); OCCULT BLOOD,URINE LARGE (Neg); PROTEIN,URINE NEGATIVE (Neg); UROBILINOGEN,URINE 0.2 E.U/dL (0.2-1.0)
[2024-08-09 00:45] LABS: MUCUS STRANDS FEW /LPF (Neg); SQUAMOUS EPITHELIAL CELL,UR FEW /LPF (FEW); UA COLLECTION TYPE CLN CATCH MIDSTREAM
[2024-08-09 00:46] LABS: BACTERIA,URINE FEW /HPF (Neg); RBC,URINE 50-100 /HPF (0-2); WBC,URINE 0-4 /HPF (0-4)
[2024-08-09 02:16] VITALS: BP 109/53; PULSE 68; RESP 17; TEMP 98.1; O2SAT 94
== END 2024-08-09 02:23 | disposition home or self-care (01) ==
LOC: ER 22:16
DX: N92.0 Excessive and frequent menstruation with regular cycle (principal); D64.9 Anemia, unspecified; Z88.0 Allergy status to penicillin
CPT/HCPCS: 36415; 76856; 80053; 81001; 81025; 85025; 85610; 93976; 99284; 99285